=== PATIENT | male | born 1990 | race Asian ===

== ENCOUNTER 2019-11-15 15:21 | Emergency (ER) | payer SELFPAY ==
[~2019-11-15] VITALS: Ht 165.1 cm; Wt 70.0 kg
--- NOTE | 2019-11-15 17:04 | NUR ---
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
[2019-11-15 18:09] VITALS: BP 120/54
== END 2019-11-15 18:11 | disposition home or self-care (01) ==
LOC: ED 18:09
DX: S00.83XA Contusion of other part of head, initial encounter (principal); S20.212A Contusion of left front wall of thorax, initial encounter; S80.12XA Contusion of left lower leg, initial encounter; F17.200 Nicotine dependence, unspecified, uncomplicated; W01.0XXA Fall on same level from slipping, tripping and stumbling without subsequent striking against object, initial encounter; Y93.89 Activity, other specified; Y92.488 Other paved roadways as the place of occurrence of the external cause; Y99.8 Other external cause status
CPT/HCPCS: 71046; 93005; 99283